=== PATIENT | female | born 1960 | race Caucasian/White ===

== ENCOUNTER 2022-06-19 15:24 | Outpatient (REF) | payer OTHER, SELFPAY ==
[2022-06-19 16:02] LABS: MANUAL DIFF FLAG NO
[2022-06-19 17:43] LABS: Basophils Percent Auto 0.6 % (0-2); Eosinophils Absolute Auto 0.3 X10*3/uL (0.0-0.4); Eosinophils Percent Auto 5.1 % (0-4); Hematocrit 36.5 % (37.0-47.0); Imm Gran Abs Auto 0.01 X10*3/uL (0.00-0.03); Imm Gran Pct Auto 0.2 % (0.0-0.4); Lymphocytes Absolute Auto 1.4 X10*3/uL (1.2-4.9); Lymphocytes Percent Auto 26.5 % (20-40); Mean Corpuscular HGB Conc 32.9 g/dl (31.0-35.0); Mean Corpuscular Hemoglobin 30.4 pg (27.0-33.0); Mean Corpuscular Volume 92.4 fL (80.0-98.0); Mean Platelet Volume 12.9 fL (9.4-12.3); Monocytes Absolute Auto 0.4 X10*3/uL (0.1-1.2); Neutrophils Absolute Auto 3.2 x10*3/uL (2.0-8.3); Neutrophils Percent Auto 60.6 % (45-73); Platelet Count 211 X10*3/uL (160-400); Red Blood Count 3.95 X10*6/uL (4.20-5.50); Red Cell Distribution Width 11.8 % (11.0-16.0); White Blood Count 5.3 X10*3/uL (4.8-10.8)
[2022-06-19 18:03] LABS: Alanine Aminotransferase 18 U/L (0-31); Albumin Level 4.5 g/dL (3.5-5.0); Alkaline Phosphatase 66 U/L (39-117); Amylase 49 U/L (28-100); Anion Gap 15 (12-20); Aspartate Amino Transferase 20 U/L (5-31); Bilirubin Direct 0.2 mg/dL (0.0-0.5); Bilirubin Total 0.6 mg/dL (0.0-1.0); Blood Urea Nitrogen 11 mg/dL (9-16); C Reactive Protein 0.25 mg/dL (< or = 0.50); Calcium 9.1 mg/dL (8.4-10.2); Carbon Dioxide 24 mmol/L (22-29); Chloride 103 mmol/L (96-108); Estimated Glomerular Filt Rate > 60; Glucose Random 91 mg/dL (60-115); Iron 61 mcg/dL (30-160); Lipase 22 U/L (8-78); Percent Iron Saturation 20 % (15-50); Potassium 4.2 mmol/L (3.3-5.1); Sodium 138 mmol/L (135-145); Total Iron Binding Capacity 305 mcg/dL (228-428); Total Protein 6.7 g/dL (6.5-8.0); Unsaturated Iron Binding 244 ug/dL
[2022-06-19 18:25] LABS: Ferritin 60 ng/mL (10-250)
[2022-06-19 18:33] LABS: Folate 14.4 ng/mL (> or = 4.0); Vitamin B12 577 pg/mL (200-900)
[2022-06-19 19:58] LABS: Erythrocyte Sedimentation Rate 6 MM/HR (0-20)
[2022-06-22 14:17] LABS: Immunoglobulin A 132 mg/dL (70-320)
[2022-06-25 22:52] LABS: Gliadin Deamidated IgA Ab <1.0 U/mL; Gliadin Deamidated IgG Ab 4.2 U/mL
[2022-06-27 15:12] LABS: Transglutaminase Ab IgG <1.0 U/mL; Transglutaminase IgA <1.0 U/mL
[2022-06-28 11:33] LABS: Endomysial IgA Antibody Negative (Negative)
== END 2022-06-19 15:25 | disposition home or self-care (01) ==
LOC: HO.LAB 15:24
PROVIDERS: PCP Physician Assistant; Visit Provider Internal Medicine
DX: R10.11 Right upper quadrant pain (principal); R19.7 Diarrhea, unspecified; R11.0 Nausea; R63.4 Abnormal weight loss; R63.0 Anorexia
CPT/HCPCS: 36415; 80048; 80076; 82150; 82607; 82728; 82746; 82784; 83540; 83690; 85025; 85652; 86140; 86231; 86258; 86364

== ENCOUNTER 2022-06-20 14:44 | Outpatient (REF) | payer OTHER, SELFPAY ==
[2022-06-20 16:07] LABS: CDiff Gene PCR NEGATIVE (Negative)
[2022-06-20 17:06] LABS: Leukocytes Stool Qualitative NEGATIVE (NEGATIVE)
[2022-06-25 21:21] LABS: Calprotectin, Fecal 7 mcg/g
[2022-06-25 22:36] LABS: Fecal Fat Qualitative Abnormal (Normal)
== END 2022-06-20 14:45 | disposition home or self-care (01) ==
LOC: HO.LNP 14:44
PROVIDERS: Visit Provider Internal Medicine
DX: R10.11 Right upper quadrant pain (principal); R11.0 Nausea; R19.7 Diarrhea, unspecified; R63.4 Abnormal weight loss; R63.0 Anorexia
CPT/HCPCS: 82705; 83993; 87493; 87507; 89055

== ENCOUNTER 2022-06-21 09:47 | Day surgery (SDC) | payer OTHER, SELFPAY ==
--- NOTE | 2022-06-20 09:56 | P.CONAN_ITS ---
Documented by User: Melisa Stone NP 06/20/22 15:01 HPI - Anesthesia Eval Consult details Narrative: 62yo F for Upper Endoscopy No patient info available 06/20/22 at 1501. FOR[facility]LY [facility], [facility] Past Medical History Medical History Depression Surgical History Surgical History History of back surgery Hx of cholecystectomy Hx of eye surgery Social History Social History Patient Tobacco Use Status: Never used Tobacco Are you DNR?: No Advance Directives: No Advance Directives Information Provided: Yes Nutrition Risks: No Nutritional Risk Meds Allergies Allergy/AdvReac Type Severity Reaction Status Date / Time adhesive Allergy Unknown Verified 06/21/22 05:36 gluten Allergy Unknown Verified 06/21/22 05:36 Home Medications Medication Instructions Recorded Confirmed Last Taken Type escitalopram oxalate 20 mg tablet 1 tab PO DAILY 06/21/22 06/21/22 06/20/22 History Exam Exam Date and Time: June 20, 2022 0956 Pertinent Lab Results Pertinent Lab Results: Laboratory Tests 06/19/22 06/19/22 16:01 16:01 WBC 5.3 Hgb 12.0 Hct 36.5 L Plt Count 211 Sodium 138 Potassium 4.2 Chloride 103 Carbon Dioxide 24 BUN 11 Creatinine 0.81 Documented by User: Danielle Ellison MD 06/21/22 10:27 [facility] Past Medical History Medical History Depression Surgical History Surgical History History of back surgery Hx of cholecystectomy Hx of eye surgery History of Problems with Anesthesia: No Social History Social History Patient Tobacco Use Status: Never used Tobacco Are you DNR?: No Advance Directives: No Advance Directives Information Provided: Yes Nutrition Risks: No Nutritional Risk Meds Allergies Allergy/AdvReac Type Severity Reaction Status Date / Time adhesive Allergy Unknown Verified 06/21/22 05:36 gluten Allergy Unknown Verified 06/21/22 05:36 Home Medications Medication Instructions Recorded Confirmed Last Taken Type escitalopram oxalate 20 mg tablet 1 tab PO DAILY 06/21/22 06/21/22 06/20/22 History Exam Airway Mallampati Class: II (Implants top upper) TM Dist: >3cm Neck ROM: Full Partial: Lower Loose/Missing/Broken Teeth: Yes and Lower Heart: RRR Lungs: CTA Assessment and Plan Assessment Anesthesia Assessment: Anesthesia Plan Discussed and Chart Reviewed Final Anesthetic Review History of Problems with Anesthesia: No NPO: Yes ASA Class: I Final Preanesthetic Review: Meds/Allgs Chart Reviewed, Consent Obtained/Reviewed and Anes Risks/Benef Reviewed Patient Risk: Low Procedure Risk: Intermediate Anesthetic Plan Anesthetic Plan: MAC: Disposition: Standard PACU
[2022-06-21 06:53] VITALS: BMI 24.7
[2022-06-21 09:51] VITALS: BP 136/74; PULSE 71; RESP 18; TEMP 36.1; O2SAT 98
[2022-06-21] MEDS: Lactated Ringers 1,000 ML 50 ML IVCONT (10:36)
[2022-06-21 11:22] VITALS: BP 99/56; PULSE 66; RESP 18; TEMP 36.6; O2SAT 100
--- NOTE | 2022-06-21 11:28 | PM.OP ---
Brief Operative Note Date of Service: 06/21/22 Pre-op diagnosis: Abdominal pain Post-op diagnosis: other (Mild gastritis) Procedure: EGD with biopsies Surgeon: Minh Evans Anesthesia: MAC Was an Board Certified Orthodontist used for this Procedure?: No Estimated blood loss (mL): 2.0 Pathology: other (A. Descending duodenum B. Gastric antrum) Condition: stable Disposition: PACU
[2022-06-21 11:37] VITALS: BP 119/65; PULSE 57; RESP 18; TEMP 36.6; O2SAT 100
--- NOTE | 2022-06-21 23:05 | OP_ITS ---
SURGEON: Minh Evans MD INDICATIONS: The patient presents for evaluation of abdominal pain, weight loss, and nausea. Full consent has been obtained from her for that, including risks of bleeding and perforation. PREOPERATIVE DIAGNOSIS: POSTOPERATIVE DIAGNOSIS: PROCEDURE PERFORMED: Esophagogastroduodenoscopy with biopsies. ESTIMATED BLOOD LOSS: COMPLICATIONS: ANESTHESIA: Monitored anesthesia care. ASSISTANTS: SPECIMENS: PREOPERATIVE DIAGNOSES: Abdominal pain, nausea, and weight loss. POSTOPERATIVE DIAGNOSES: Abdominal pain, nausea, and weight loss, minimal gastritis, minimal hiatal hernia, rule out celiac disease, rule out Helicobacter pylori. DESCRIPTION OF PROCEDURE: The patient was placed in the left lateral decubitus position. The Olympus video gastroscope was passed in the posterior oropharynx and upper esophagus under direct vision. The scope was passed slowly to the distal esophagus. The gastroesophageal junction appeared normal at 38 cm. There was no sign of any esophagitis, Hernandez's esophagus, nor esophageal stricture. The scope easily entered into the stomach. There was a minimal hiatal hernia. The scope was advanced to the pylorus. The duodenum was cannulated to the descending portion. The duodenum including the bulb appeared normal without mass or ulceration. Biopsies were obtained from the 2nd and 3rd portions of duodenum. The scope was withdrawn back into the stomach. The gastric antrum had some minimal areas of erythema and edema, but no erosions nor ulceration. There was good peristalsis. The scope was retroflexed visualizing the proximal stomach carefully, which appeared normal, without any sign of mass or ulceration. The scope was straightened. Biopsies were obtained from the gastric antrum. The scope was withdrawn back into the esophagus. The esophageal mucosa appeared normal. The scope was withdrawn from the patient. She tolerated the procedure well and was returned to the recovery area in stable condition. IMPRESSION: 1. Minimal changes of gastritis, rule out Helicobacter pylori. 2. Rule out celiac disease. 3. Minimal hiatal hernia. PLAN: The results of the biopsies will be checked. At this point, these findings would certainly not be the cause of her current symptoms of significant abdominal pain and weight loss. A recent battery of laboratories has all been nonrevealing. Stool specimens are pending but have thus far been negative for C difficile and WBCs. The etiology of her abdominal pain and other symptoms is not clear. Given today's findings, I would recommend further workup with colonoscopy given the associated change in bowel habits. I would also recommend a CT of the abdomen with CT angiogram to rule out any component of celiac artery compression as a cause of her ongoing pain and postprandial symptoms. This can all be scheduled for her in the near future. I am going to put her on a trial of omeprazole 20 mg daily for the next 1-2 months as well just to see if by chance that might give her some relief. This has all been discussed with her in detail. MD TANA Horner/REA / [id number] MTDD
== END 2022-06-21 12:30 | disposition home or self-care (01) ==
PROVIDERS: PCP Physician Assistant; Visit Provider Internal Medicine
PROC: 0DJ08ZZ Inspection of Upper Intestinal Tract, Via Natural or Artificial Opening Endoscopic (ICD-10-PCS; CPT 43235; principal; 2022-06-21 11:10)
DX: R10.11 Right upper quadrant pain (principal); R19.7 Diarrhea, unspecified; R63.4 Abnormal weight loss; K29.70 Gastritis, unspecified, without bleeding; K44.9 Diaphragmatic hernia without obstruction or gangrene; F32.A Depression, unspecified; Z79.899 Other long term (current) drug therapy; Z90.49 Acquired absence of other specified parts of digestive tract; Z91.02 Food additives allergy status
CPT/HCPCS: 43239; 88305; 88342

== ENCOUNTER 2022-06-28 11:30 | Outpatient (REF) | payer OTHER, SELFPAY ==
--- NOTE | ~2022-06-28 | CT_ITS ---
EXAMINATION: CT ANGIOGRAM ABDOMEN CLINICAL INFORMATION: Quadrant abdominal pain, rule out celiac artery compression syndrome. COMPARISON: Outside abdominal ultrasound dated 05/02/2022. TECHNIQUE: Multiple axial images were obtained through the abdomen following the administration of 100 mL Omnipaque 350 intravenous contrast. Images were reviewed on a dedicated 3-D workstation. This CT examination was performed using dose optimization techniques as appropriate, variously including the following: *Automated exposure control *Adjustment of mA and/or kV according to patient size (this includes techniques or standardized protocols for targeted exams where dose is matched to indication/reason for exam; i.e. extremities or head) *Use of iterative reconstruction technique DLP: 297 mGy-cm FINDINGS: VASCULAR: A concave compression deformity seen along the ventral margin of the celiac artery causing approximately 50% stenosis from 0.6 cm proximally to 0.3 cm at the level the stenosis (image 48, series 8). The remainder of the celiac artery and branches are unremarkable. The superior mesenteric artery and visualized aorta are unremarkable. Incidental supernumerary right renal arteries. INFERIOR CHEST: No pleural or pericardial effusions. HEPATOBILIARY: Small, fluid attenuation, noncalcified cyst posteriorly in the right lobe measuring 1.9 cm (image 14, series 5). No other significant hepatic abnormality. Status post cholecystectomy. No biliary abnormality. PANCREAS: Unremarkable. SPLEEN: Unremarkable. ADRENAL GLANDS: Unremarkable. KIDNEYS/PROXIMAL URETERS: Unremarkable. BOWEL: The stomach, visualized small bowel and visualized large bowel are unremarkable. LYMPH NODES: No lymphadenopathy. MUSCULOSKELETAL: The patient is status post posterior fusion at L4 and L5 with bilateral pedicle screws and posterior fixation rods in place. Moderate to severe degenerative disc disease is seen at L5-S1. Rudimentary disc at S1-2. No suspicious abnormality. SOFT TISSUES: Unremarkable. CT/CT angio abdomen IMPRESSION: 1. 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 No other significant vascular abnormality. No other significant abnormality.
[2022-06-28] MEDS: iohexoL 350 MG/ML 100 ML INFUS..BTL IV (13:27)
== END 2022-06-28 11:31 | disposition home or self-care (01) ==
LOC: HO.CT 11:30
PROVIDERS: PCP Physician Assistant; Visit Provider Internal Medicine
DX: R10.11 Right upper quadrant pain (principal); R63.4 Abnormal weight loss; R63.0 Anorexia; R10.13 Epigastric pain
CPT/HCPCS: 74175; Q9967

== ENCOUNTER 2022-08-08 08:53 | Outpatient (REF) | payer OTHER, SELFPAY ==
--- NOTE | ~2022-08-08 | US_ITS ---
EXAMINATION: US MESENTERIC ARTERIES CLINICAL INFORMATION: Celiac artery compression syndrome. COMPARISON: CTA abdomen on 06/28/2022 TECHNIQUE: Real-time imaging of the mesenteric arteries assessing grayscale appearance and color Doppler flow. Duplex evaluation of the mesenteric arteries. FINDINGS: Aorta: Proximal to the SMA: 86 cm/s Distal to the SMA: 78 cm/s Celiac artery: Inspiration supine: 227 cm/s Inspiration erect: 137 cm/s SMA: Proximal: 100 cm/s Mid: 110 cm/s Distal: 137 cm/s PATRICIA: 1 97 cm/s Splenic artery: 214 cm/s Hepatic artery: 251 cm/s US/US SMA IMPRESSION: Elevated celiac artery supine velocities are elevated and normalized in the upright position suggesting arcuate ligament compression.
== END 2022-08-08 08:54 | disposition home or self-care (01) ==
LOC: HO.HMGCX 08:53
PROVIDERS: Visit Provider Surgery Vascular Surgery
DX: I77.4 Celiac artery compression syndrome (principal)
CPT/HCPCS: 93976

== ENCOUNTER 2022-10-28 16:27 | Outpatient (REF) | payer OTHER, SELFPAY ==
[2022-10-28 17:16] LABS: Alanine Aminotransferase 13 U/L (0-31); Albumin Level 4.2 g/dL (3.5-5.0); Alkaline Phosphatase 68 U/L (39-117); Amylase 64 U/L (28-100); Aspartate Amino Transferase 17 U/L (5-31); Bilirubin Direct < 0.2 mg/dL (0.0-0.5); Bilirubin Total 0.5 mg/dL (0.0-1.0); Lipase 48 U/L (8-78); Total Protein 6.1 g/dL (6.5-8.0)
== END 2022-10-28 16:28 | disposition home or self-care (01) ==
LOC: HO.LAB 16:27
PROVIDERS: PCP Physician Assistant; Visit Provider Internal Medicine
DX: R10.13 Epigastric pain (principal); R93.2 Abnormal findings on diagnostic imaging of liver and biliary tract
CPT/HCPCS: 36415; 80076; 82150; 83690

== ENCOUNTER 2022-11-07 07:17 | Outpatient (REF) | payer OTHER, SELFPAY ==
--- NOTE | ~2022-11-07 | MR_ITS ---
EXAMINATION: MR ABDOMEN WITHOUT CONTRAST CLINICAL INFORMATION: Epigastric abdominal pain. COMPARISON: Ultrasound mesenteric arteries 08/08/2022, CTA abdomen 06/28/2022; outside MR abdomen with contrast 8822 ([facility]), outside ultrasound abdomen right upper quadrant 05/02/2022 ([facility]). Prior cholecystectomy 05/2022. TECHNIQUE: MR abdomen is performed without gadolinium contrast. Imaging is performed in coronal and axial planes. Additional MRCP sequence also obtained. FINDINGS: LUNG BASES: The visualized lung bases are unremarkable. LIVER, GALLBLADDER, AND BILIARY TREE: The liver is normal in size, smooth in contour, and normal in signal.. There is no signal loss on out of phase imaging to suggest hepatic steatosis. Again, there is a homogeneous circumscribed subcapsular cyst posterior medial segment 7 measuring under 2 cm. No interval hepatic parenchymal lesion. There has been prior cholecystectomy. No intrahepatic biliary ductal dilatation. The common hepatic duct measures approximately 1.1 cm and the common bile duct smoothly tapers towards the ampulla without focal stenosis, extrinsic compression, or displacement. There is no intraluminal filling defect. No visible choledocholithiasis. PANCREAS: Normal in size and contour and signal. Normal pancreatic duct. No retroperitoneal effusion. SPLEEN: Unremarkable. ADRENAL GLANDS: Unremarkable. KIDNEYS AND URETERS: The kidneys are normal in size and shape. No hydronephrosis. No perinephric stranding. GASTROINTESTINAL TRACT: No bowel obstruction. No ascites or fluid collection. ABDOMINAL WALL: No significant hernia is appreciated. LYMPH NODES: No lymphadenopathy. VASCULAR: Unremarkable on this noncontrast exam. OSSEOUS STRUCTURES: No acute bony abnormality. Prior lower lumbar fusion L4-L5. MR/MR abdomen wo con IMPRESSION: 1. Prior cholecystectomy. No intrahepatic biliary ductal dilatation. No choledocholithiasis. 2. Normal pancreas. Normal pancreatic duct. 3. Small hepatic cyst, under 2 cm.
== END 2022-11-07 07:18 | disposition home or self-care (01) ==
LOC: HO.MRI 07:17
PROVIDERS: Visit Provider Internal Medicine
DX: R10.13 Epigastric pain (principal); R93.2 Abnormal findings on diagnostic imaging of liver and biliary tract
CPT/HCPCS: 74181

== ENCOUNTER 2023-01-03 08:28 | Outpatient (REF) | payer OTHER, SELFPAY ==
--- NOTE | ~2023-01-03 | FL_ITS ---
EXAMINATION: FL UPPER GI WITH AIR CLINICAL INFORMATION: Dysphagia. COMPARISON: None available. TECHNIQUE: Routine upper GI air-contrast study was performed. FINDINGS: Following oral administration of thick barium and effervescent granules there is incomplete distention of cervical esophagus likely mild chronic narrowing or stricture, no laryngeal penetration or aspiration seen. The upper, mid and distal esophagus is well distended with no mucosal irregularity seen. Minimal ventral spondylosis seen at the C4-C5 and C5-C6 disc level indenting posterior cervical esophageal wall but no obstruction from posterior aspect. On placing patient supine and prone lying, the course, caliber and peristalsis of the stomach and the duodenum are normal. There is mild increased flocculation of the barium in the stomach suspicious for increased acidity. No gastric erosions or ulceration seen. No duodenal mucosal abnormality seen. There is evidence of previous cholecystectomy. Surgical loren are seen in the midabdomen from previous celiac artery intervention as per the patient. Also visualized are L4 and L5 pedicular screws and intervening rods for posterior fusion. FLUOROSCOPY TIME: 2.8 minutes DOSE AREA PRODUCT: 31.472 uGy-m2 (microgray-meter squared) FL/FL upper GI w air IMPRESSION: [id number] narrowing of the cervical esophagus question chronic narrowing or stricture. Correlate with endoscopy. Increased flocculation of barium suspicious for gastric acidity. Surgical intervention as described above.
== END 2023-01-03 08:29 | disposition home or self-care (01) ==
LOC: HO.XRAY 08:28
PROVIDERS: PCP Physician Assistant; Visit Provider Internal Medicine
DX: R68.81 Early satiety (principal); R63.4 Abnormal weight loss; R10.10 Upper abdominal pain, unspecified
CPT/HCPCS: 74246

== ENCOUNTER 2023-02-10 10:42 | Day surgery (SDC) | payer OTHER, SELFPAY ==
[2023-02-10 10:51] VITALS: BMI 21.8
[2023-02-10 10:58] VITALS: BP 134/76; PULSE 79; RESP 16; TEMP 37.1; O2SAT 96
[2023-02-10] MEDS: Lactated Ringers 1,000 ML 50 ML IVCONT (11:15)
--- NOTE | 2023-02-10 11:46 | P.CONAN_ITS ---
HPI - Anesthesia Eval Consult details Narrative: abdominal pain PMFSH Active Problems Active Problems: All Active Problems (Updated 02/07/23 @ 08:24 by Sara Gagnon, RN) Celiac artery compression syndrome (Acute) Past Medical History Medical History (Updated 02/07/23 @ 08:24 by Sara Gagnon, RN) Depression Median arcuate ligament syndrome Family History Family history of problems with anesthesia: No Surgical History Surgical History (Updated 02/07/23 @ 08:23 by Sara Gagnon, RN) History of back surgery Hx of cholecystectomy Hx of colonoscopy Hx of esophagogastroduodenoscopy Hx of eye surgery History of Problems with Anesthesia: No Social History Social History Patient Tobacco Use Status: Never used Tobacco Use of substances other than those prescribed or required for medical reasons: No Are you DNR?: No Advance Directives: No Advance Directives Information Provided: Yes Recently lost weight without trying: Yes How much weight loss: 14-23 pounds Nutrition Risks: No Nutritional Risk Meds Allergies Allergy/AdvReac Type Severity Reaction Status Date / Time adhesive Allergy Rash Verified 02/10/23 10:48 gluten Allergy Diarrhea Verified 02/10/23 10:49 Active Medications: Current Medications Lactated Ringer's (Lr) 1,000 mls @ 50 mls/hr IVCONT .Q20H PATRICK Last Admin: 02/10/23 11:15 Dose: 50 mls/hr Sodium Biphosphate/Sodium Phosphate (Sodium Phosphate,Douglas-Dibasic 133 Ml Enema) 133 ml ME ONCE PRN PRN Reason: Poor Colonoscopy Prep Results Home Medications Medication Instructions Recorded Confirmed Last Taken Type escitalopram oxalate 20 mg tablet 20 mg PO DAILY 06/21/22 02/10/23 02/10/23 History [id number] 0 cap PO 07/22/22 Unknown History 24,000-76,000-120,000 unit capsule,delayed rel (Creon) Saccharomyces boulardii 250 mg 250 mg PO QAM 08/19/22 Unknown History capsule (Probiotic (S.boulardii)) cholestyramine (with sugar) 4 gram ea PO QD-BID diarrhea 02/07/23 Unknown History oral powder dicyclomine 10 mg capsule 10 - 20 mg PO Q6H PRN abdominal 02/07/23 02/07/23 Unknown History pain ondansetron 4 mg disintegrating 4 mg PO Q4-6H PRN nausea 02/07/23 02/07/23 Unknown History tablet Exam Exam Date and Time: February 10, 2023 1146 Height,Weight and Vital Signs: Height 5 ft 10 in Weight 68.946 kg Last Vital Signs Temp 98.7 F 02/10/23 10:58 Pulse 79 02/10/23 10:58 Resp 16 02/10/23 10:58 BP 134/76 02/10/23 10:58 Pulse Ox 96 02/10/23 10:58 O2 Del Method Room Air 02/10/23 10:58 Airway Mallampati Class: II TM Dist: >3cm Neck ROM: Full Loose/Missing/Broken Teeth: Lower (partial) Heart: rr Lungs: cta Assessment and Plan Assessment Anesthesia Assessment: Anesthesia Plan Discussed and Chart Reviewed Final Anesthetic Review Family History of Problems with Anesthesia: No History of Problems with Anesthesia: No NPO: Yes ASA Class: II Final Preanesthetic Review: No Changes in Pt Med Stat, Meds/Allgs Chart Reviewed and Consent Obtained/Reviewed Patient Risk: Low Procedure Risk: Low Anesthetic Plan Anesthetic Plan: MAC: Disposition: Standard PACU
[2023-02-10 12:43] VITALS: BP 120/65; PULSE 73; RESP 16; TEMP 36.6; O2SAT 99
--- NOTE | 2023-02-10 12:51 | P.BOP_ITS ---
Brief Operative Note Date of Service: 02/10/23 Pre-op diagnosis: Screening Post-op diagnosis: other (Diverticulosis) Procedure: Colonoscopy to the cecum with biopsies Surgeon: Minh Evans Anesthesia: MAC Was an Cloth Bleaching Range Tender used for this Procedure?: No Estimated blood loss (mL): 2.0 Pathology: other (A. Ascending colon B. Descending colon) Condition: stable Disposition: PACU
[2023-02-10 12:58] VITALS: BP 120/62; PULSE 64; RESP 16; O2SAT 99
[2023-02-10 13:13] VITALS: BP 132/66; PULSE 61; RESP 16; TEMP 36.6; O2SAT 99
--- NOTE | 2023-02-10 23:25 | OP_ITS ---
DATE OF SERVICE: 02/10/2023 SURGEON: Minh Evans MD INDICATIONS: The patient presents for evaluation of colorectal cancer screening as well as for abdominal pain and irregular bowel movements. Full consent was obtained from her for this, including risks of bleeding and perforation. PREOPERATIVE DIAGNOSIS: POSTOPERATIVE DIAGNOSIS: PROCEDURE PERFORMED: Colonoscopy to the cecum with biopsies. ESTIMATED BLOOD LOSS: COMPLICATIONS: ANESTHESIA: Monitored anesthesia care. ASSISTANTS: SPECIMENS: PREOPERATIVE DIAGNOSES: Colorectal cancer screening, abdominal pain, irregular bowel movements. POSTOPERATIVE DIAGNOSES: Colorectal cancer screening, abdominal pain, irregular bowel movements, sigmoid diverticulosis, internal hemorrhoids, rule out microscopic colitis. DESCRIPTION OF PROCEDURE: The patient was placed in the left lateral decubitus position. The digital rectal exam revealed no abnormalities. The Olympus video pediatric colonoscope was entered into the rectum and advanced to the cecum with the assistance of abdominal wall pressure. Advancement to the cecum was somewhat difficult. Once in the cecum, I did identify normal appearing cecal pouch with appendiceal orifice and a normal appearing ileocecal valve. There was transillumination of light deep in the right lower quadrant. The entire cecum and ileocecal valve appeared normal. The scope was slowly withdrawn assessing all mucosal surfaces carefully. Preparation was excellent. I did not visualize any sign of polyps, colitis, or angiodysplasia. Random biopsies were obtained in the ascending and descending colon. There was a mild amount of sigmoid diverticulosis. In the rectum, scope was retroflexed visualizing small internal hemorrhoids, but no other pathology. The rectal mucosa appeared normal. The scope was straightened and withdrawn from the patient. She tolerated the procedure well and was returned to the recovery area in stable condition. IMPRESSION: 1. Diverticulosis. 2. Internal hemorrhoids. 3. Rule out microscopic colitis. PLAN: The results of the biopsies will be checked. I am going to give her another trial of omeprazole, but at 40 mg daily to see if that gives her any relief of her upper GI complaints of some nausea, reflux, and heartburn. I do not have an explanation as to the etiology of her right upper quadrant pain given her extensive workup thus far. I would recommend a repeat colonoscopy for screening in 10 years. In addition to the omeprazole, she does have some antispasmodics and antiemetics at home that she can use as needed as well. I do not think she needs any further imaging of her abdomen at this time given her multiple studies within the past year or so. This has been discussed with her .. MD TANA Horner/REA / [id number] MTDD
== END 2023-02-10 13:50 | disposition home or self-care (01) ==
PROVIDERS: PCP Physician Assistant; Visit Provider Internal Medicine
PROC: 0DJD8ZZ Inspection of Lower Intestinal Tract, Via Natural or Artificial Opening Endoscopic (ICD-10-PCS; CPT 45378; principal; 2023-02-10 14:20)
DX: Z12.11 Encounter for screening for malignant neoplasm of colon (principal); K57.30 Diverticulosis of large intestine without perforation or abscess without bleeding; K64.8 Other hemorrhoids; K21.9 Gastro-esophageal reflux disease without esophagitis; R10.11 Right upper quadrant pain; R11.2 Nausea with vomiting, unspecified; L23.1 Allergic contact dermatitis due to adhesives; K44.9 Diaphragmatic hernia without obstruction or gangrene; F32.A Depression, unspecified; Z79.899 Other long term (current) drug therapy; Z90.49 Acquired absence of other specified parts of digestive tract; Z98.890 Other specified postprocedural states
CPT/HCPCS: 45380; 88305; J2250

== ENCOUNTER 2023-04-22 12:04 | Outpatient (REF) | payer OTHER, SELFPAY ==
--- NOTE | ~2023-04-22 | MR_ITS ---
EXAMINATION: MR BREAST WITHOUT AND WITH CONTRAST, BILATERAL CLINICAL INFORMATION: 62-year-old for high-risk screening family history mother and sister. History benign right biopsy COMPARISON: Correlation to mammogram 03/12/2023 TECHNIQUE: Imaging was performed with a dedicated breast coil. Prior to the administration of contrast, bilateral axial T1 and bilateral axial T2 weighted sequences were obtained. After the uneventful administration of?70 mL of Gadavist, dynamic contrast-enhanced VIBRANT series through the breasts in the axial plane were performed. Subtracted images were performed and reviewed. A delayed sagittal sequence through both breasts was acquired. Additionally, CAD post-processing, including maximum intensity projections, 3-D reconstructions and kinetic analysis, were performed an independent workstation and reviewed by the interpreting radiologist is a portion of this exam. FINDINGS: Patient's fibroglandular tissue demonstrates minimal background enhancement. LEFT BREAST: No suspicious masslike or non-masslike enhancement. No abnormal skin thickening or nipple retraction. No abnormal architectural distortion. Review of the T2 weighted images demonstrates no fibrocystic changes or dilated ducts. Review of kinetic images reveals no additional findings. RIGHT BREAST: No suspicious masslike or non-masslike enhancement. No abnormal skin thickening or nipple retraction. No abnormal architectural distortion. Review of the T2 weighted images demonstrates no fibrocystic changes or dilated ducts. Review of kinetic images reveals no additional findings. There is no suspicious internal mammary chain or axillary adenopathy. Limited views of the chest and abdomen are unremarkable. MR/MR breast BI wo/w con IMPRESSION: No MR specific evidence of malignancy. ASSESSMENT: LEFT BREAST: BI-RADS 1-Negative RIGHT BREAST: BI-RADS 1-Negative RECOMMENDATIONS: Routine mammographic imaging as per most recent study and MRI as per high-risk protocol.
== END 2023-04-22 12:05 | disposition home or self-care (01) ==
LOC: HO.MRI 12:04
PROVIDERS: PCP Physician Assistant; Visit Provider Nurse Practitioner
DX: Z12.39 Encounter for other screening for malignant neoplasm of breast (principal); Z80.3 Family history of malignant neoplasm of breast
CPT/HCPCS: 77049; A9585

== ENCOUNTER 2023-08-14 08:00 | Outpatient (RCR) | payer OTHER, SELFPAY | END 2023-08-26 13:48 | disposition home or self-care (01) | LOC: HO.PT 08:00 | PROVIDERS: PCP Physician Assistant; Visit Provider Physical Therapist | DX: S42.291A Other displaced fracture of upper end of right humerus, initial encounter for closed fracture (principal) | CPT/HCPCS: 97110; 97140; 97162; 97530 ==